=== PATIENT | female | born 1940 | race African-American/Black ===

== ENCOUNTER → 2016-12-22 | Outpatient (CLI) | payer OTHER ==
[~2016-12-22] MED LIST: CHOL100013 PO; DOCU-27 PO; FERR325T72 PO; GABA-586 PO; LEVO125T5 PO; LEVO175T5 PO; LISI-334 PO; METO25TA4 PO; OMEP20CA9 PO; OXYC-323 PO; Oxycodone Hcl/Acetaminophen PO; SIMV20TA3 PO; TRAM50TA PO; WARF5TAB7 PO; WARF6TAB49 PO
--- NOTE | 2016-12-22 10:42 | RAD ---
Right lower extremity nonvascular ultrasound History: Right groin pain after cardiac catheterization. Comparison: None. Technique: Grayscale and color Doppler imaging was performed of the right inguinal region. Findings: No focal fluid collection is seen in the right inguinal region. No pseudoaneurysm is seen. Right common femoral artery and common femoral vein are seen which appear patent. Impression: No evidence of hematoma in the right inguinal region. No evidence of pseudoaneurysm.
== END | disposition home or self-care (01) ==
LOC: US 06:54 → MERGE 06:54 → EDBD 06:54
PROVIDERS: ATTEND Internal Medicine
DX: R10.31 Right lower quadrant pain (principal)
CPT/HCPCS: 76881

== ENCOUNTER → 2017-03-01 | Outpatient (CLI) | payer OTHER ==
[2015-09-04 22:00] VITALS: BP 155/104
[~2017-03-01] MED LIST changes: +DOCU-109 PO; -DOCU-27 PO
--- NOTE | 2017-03-01 15:22 | RAD ---
EXAM: MRI LUMBAR SPINE WITHOUT CONTRAST. HISTORY: Low back pain with worsening right lower extremity radiculopathy. TECHNIQUE: Magnetic resonance images of the lumbar spine were obtained without contrast. COMPARISON: None. FINDINGS: There are limitations from motion artifact on some series. The examination remains diagnostic for the following. There is grade 2 anterolisthesis at L4-5 secondary to bilateral L4 pars interarticularis defects. There is a moderate superior endplate central compression deformity/Schmorl's node at L4 with residual marrow edema consistent with a subacute process. A small inferior endplate fractures seen posteriorly at L3 without significant height loss. Marrow edema at L2-3 is discogenic. Degenerative disc disease is moderate to severe at L4-5, mild at L3-4 and moderate elsewhere. The conus is at L1 and appears normal. At T10-11, there is a moderate posterior disc bulge versus broad protrusion. It abuts the anterior cord without clear deformity. Central canal stenosis appears mild. A posterior bulge and facet and ligamentum flavum hypertrophy or appear to result in mild central canal stenosis at T11-12. At T12-L1, there is a small posterior disc bulge. Facet and ligamentum flavum hypertrophy is mild. Neural foraminal stenosis is mild bilaterally. At L1-2, there is a moderate posterior disc bulge. Facet and ligamentum flavum hypertrophy is moderate. Epidural lipomatosis is the main contributor to moderate compression of the thecal sac. There is no clear neural foraminal stenosis. At L2-3, there is a moderate posterior disc bulge. Facet and ligamentum flavum hypertrophy are moderate to severe. Central canal stenosis is moderate to severe. Epidural lipomatosis contributes to further severe compression of the thecal sac. Neural foraminal stenosis is mild on the left and moderate on the right. At L3-4, there is a small posterior disc bulge. Facet hypertrophy is severe. Central canal stenosis is severe. Neural foraminal stenosis is mild to moderate bilaterally. At L4-5, there is a moderate posterior disc-osteophyte complex. Facet and ligamentum flavum hypertrophy is severe. Central canal stenosis is severe. Neural foraminal stenosis is moderate to severe bilaterally. Lateral components to the disc osteophyte complex also exert mass effect on both L4 nerve roots lateral to the foramina. At L5-S1, there is a moderate posterior disc-osteophyte complex with a central protrusion and annular tear. Facet and ligamentum flavum hypertrophy is moderate. Central canal stenosis is moderate. Neural foraminal stenosis is moderate on the left and mild on the right. Lateral disc osteophyte complexes exert mass effect on the L5 nerve roots lateral to the foramina. IMPRESSION: 1. Central canal stenosis is severe at L3-L5 and moderate from T12 through L2 and at L5-S1. Epidural lipomatosis contributes to further compression of the thecal sac at levels where central canal stenosis is not already severe. 2. Grade 2 anterolisthesis at L4-5 from bilateral L4 pars interarticularis defects. There is moderate to severe bilateral neural foraminal stenosis at this level. Additional neural foraminal stenosis is mild to moderate as above. 3. There is additional mass effect on both L4 and L5 nerve roots lateral to the foramina from disc osteophyte complexes. 4. Moderate subacute central superior plate compression deformity at L4. There is a minimal subacute compression deformity at the inferior endplate of L3. 5. Fatty atrophy of the paraspinous musculature. Electronically signed by: Thomas Cristobal MD (03/01/2017 3:19 PM) [facility]
== END | disposition home or self-care (01) ==
LOC: MRI 14:18
PROVIDERS: ATTEND Internal Medicine
DX: M48.06 Spinal stenosis, lumbar region (principal); M48.05 Spinal stenosis, thoracolumbar region; M51.17 Intervertebral disc disorders with radiculopathy, lumbosacral region; M51.16 Intervertebral disc disorders with radiculopathy, lumbar region; M24.28 Disorder of ligament, vertebrae; M25.78 Osteophyte, vertebrae; M48.8X9 Other specified spondylopathies, site unspecified
CPT/HCPCS: 72148

== ENCOUNTER → 2018-06-29 | Outpatient (CLI) | payer OTHER ==
[2018-05-24 17:15] VITALS: BP 140/71
[~2018-06-29] MED LIST changes: +ASPI81TA50 PO; +CHOL500L2 PO; +DICL100G18 TP; +FERR-36 PO; +LEVO150T5 PO; +MONT10TA9 PO; +MULT1TAB52 PO; +WARF-31 PO; -WARF5TAB7 PO
--- NOTE | 2018-06-29 12:35 | RAD ---
MR#: [id number] Date of Study: 06/29/2018 Ordering Physician: MERCEDES CARDENAS, Referring Physician: MERCEDES CARDENAS, Tech: Susie Vital RDMS, RVT, RTR APPROVED REPORT Patient Location : OUT-PATIENT Indications Lower Extremity Pain : Bilateral Greater Saphenous Veins (GSV) Significant venous relux noted in the RIGHT GSV at the following levels : Superficial Femoral Junctio n, Proximal Thigh, Mid Thigh, Distal Thigh, Proximal Calf, Mid Calf, Distal Calf Significant venous relux noted in the LEFT GSV at the following levels : Superficial Femoral Junction , Proximal Thigh, Mid Thigh, Distal Thigh, Proximal Calf, Mid Calf, Distal Calf Findings Grayscale images of the bilateral greater and lesser saphenous veins do not reveal any obvious eviden ce of thrombus. Color Doppler and spectral imaging reveals positive reflux in the bilateral greater saphenous veins. The right great saphenous vein measures 5.6 mm and has a maximum reflux time of approximately 2.1 sec onds. The left great saphenous vein measures 5.4 mm and has a reflux time of 2.1 seconds. Bilateral lesser saphenous veins do not show any evidence of reflux. Critical Notification Critical Value: No <Conclusion> Positive for reflux in the bilateral greater saphenous veins. Signed by : Mercedes Cardenas, Electronically Approved : 06/29/2018 12:34:11
--- NOTE | 2018-07-02 11:40 | RAD ---
MR#: [id number] Date of Study: 06/29/2018 Ordering Physician: MERCEDES CARDENAS, Referring Physician: MERCEDES CARDENAS, Tech: Susie Vital, RDMS, RVT, RTR APPROVED REPORT Patient Location: OUT-PATIENT Indications Bilateral Leg Pain VELOCITY AND DOPPLER WAVEFORM ANALYSIS RIGHT cm/secWaveformSeverity LEFT cm/secWaveform Severity pCFA 120.3TriphasicMild < 50%pCFA 100.0BiphasicMild < 50% Prof Fem Art. 61.9BiphasicMild < 50%Prof Fem Art. 77.4BiphasicMild < 50% Fem Art Prox. 88.6BiphasicMild < 50%Fem Art Prox. 130.2BiphasicMild < 50% Fem Art Mid. 89.3BiphasicMild < 50%Fem Art Mid. 77.0BiphasicMild < 50% Fem Art Dist. 80.2BiphasicMild < 50%Fem Art Dist. 52.9BiphasicMild < 50% Pop Art(AK) 52.9BiphasicMild < 50%Pop Art(AK) 58.6BiphasicMild < 50% SHEET ROCK TAPER Dist. 77.7BiphasicMild < 50%SHEET ROCK TAPER Dist. 97.2BiphasicMild < 50% Per Art Prox. 52.9BiphasicMild < 50%Per Art Prox. 56.1BiphasicMild < 50% RUI Prox. 38.4BiphasicMild < 50%RUI Prox. 35.3BiphasicMild < 50% DPA 57.8BiphasicMild < 50%DPA 71.2BiphasicMild < 50% Findings Springer scale images are noted for mild diffuse atherosclerosis. Mostly biphasic waveforms above the kne e and mostly monophasic, mildly blunted waveforms below the knee. No focal high grade disease is note d. Critical Notification Critical Value: No <Conclusion> No focal high grade disease in the bilateral lower extremities with three vessel run-off Signed by : Mercedes Cardenas, Electronically Approved : 07/02/2018 11:39:46
== END | disposition home or self-care (01) ==
LOC: EDBD → MERGE 09:00 → EDBD 09:00 → US 10:00
PROVIDERS: ATTEND Internal Medicine Cardiovascular Disease
DX: I70.293 Other atherosclerosis of native arteries of extremities, bilateral legs (principal)
CPT/HCPCS: 93925; 93970

== ENCOUNTER → 2020-03-05 | Outpatient (CLI) | payer MEDICARE, OTHER ==
[2015-09-04 22:00] VITALS: BP 155/104
[~2020-03-05] MED LIST changes: -DICL100G18 TP; +DICL100G54 TP; -GABA-586 PO; +GABA300C18 PO; +MONT10TA49 PO; -MONT10TA9 PO; +MULT-445 PO; -MULT1TAB52 PO; +OMEP20CA16 PO; -OMEP20CA9 PO; -OXYC-323 PO; +OXYC1TAB15 PO; +SIMV20TA18 PO; -SIMV20TA3 PO
[2020-03-05 15:14] LABS: CHOLESTEROL/HDL RATIO 1.7
--- NOTE | 2020-03-05 15:23 | CARD ---
MR#: [id number] Date of Study: 03/05/2020 Ordering Physician: MERCEDES CARDENAS, Referring Physician: MERCEDES CARDENAS, Tech: Ramandeep Hampton [facility] APPROVED REPORT EXAM: Two-dimensional and M-mode echocardiogram with Doppler and color Doppler. Other Information Quality : Fair INDICATION Cardiac Disease: CAD 2D DIMENSIONS RVDd3.2 (2.9-3.5cm)Left Atrium(2D)3.0 (1.6-4.0cm) IVSd1.2 (0.7-1.1cm)Aortic Root(2D)2.7 (2.0-3.7cm) LVDd3.2 (3.9-5.9cm)LVOT Diameter2.0 (1.8-2.4cm) PWd1.5 (0.7-1.1cm)LVDs2.9 (2.5-4.0cm) FS (%) 24.0 %SV8.3 ml LVEF(%)55.0 (>50%) Aortic Valve AoV Peak Wesley.193.5cm/sAoV VTI35.7cm AO Peak GR.15.0mmHgLVOT Peak Wesley.67.5cm/s AO Mean GR.9mmHgAVA (VMAX)1.04cm2 DEYSI (VTI)1.20cm2 Mitral Valve MV E Omzexjxj64.5cm/sMV DECEL [id number] MV A Yutzaifm07.0cm/sE/A Ratio0.6 Pulmonary Vein S1 Vckjybwc27.2cm/sD2 Sgvghpnn64.3cm/s LEFT VENTRICLE The left ventricle is normal size. There is mild concentric left ventricular hypertrophy. The left ve ntricular systolic function is normal and the ejection fraction is within normal range. The Ejection Fraction is 55-60%. There is normal LV segmental wall motion. Transmitral Doppler flow pattern is Gra de I-abnormal relaxation pattern. RIGHT VENTRICLE The right ventricle is normal size. The right ventricular systolic function is normal. ATRIA The left atrium size is normal. The right atrium size is normal. The interatrial septum is intact wit h no evidence for an atrial septal defect or patent foramen ovale as noted on 2-D or Doppler imaging. AORTIC VALVE The aortic valve is calcified and displays decreased opening. Doppler and Color Flow revealed no sign ificant aortic regurgitation. Calculated aortic valve area is 1.2 cm2 with maximum pressure gradient of 15 mmHg and mean pressure gradient of 9 mmHg. Doppler and color-flow analysis revealed mild aortic stenosis. MITRAL VALVE The mitral valve is calcified but opens well. There is no evidence of mitral valve prolapse. There is no mitral valve stenosis. Doppler and Color Flow revealed no mitral valve regurgitation noted. TRICUSPID VALVE The tricuspid valve is normal in structure and function. Doppler and Color Flow revealed no tricuspid valve regurgitation noted. There is no tricuspid valve stenosis. PULMONIC VALVE The pulmonic valve is not well visualized. Doppler and Color Flow revealed no pulmonic valvular regur gitation. There is no pulmonic valvular stenosis. GREAT VESSELS The aortic root is normal in size. The ascending aorta is not well seen. The IVC is normal in size an d collapses >50% with inspiration. PERICARDIAL EFFUSION There is no evidence of significant pericardial effusion. Critical Notification Critical Value: No <Conclusion> The left ventricular systolic function is normal and the ejection fraction is within normal range. Th e Ejection Fraction is 55-60%. There is normal LV segmental wall motion. Signed by : Mercedes Cardenas, Electronically Approved : 03/05/2020 15:23:18
== END | disposition home or self-care (01) ==
LOC: EDBD 01-28 13:00 → ECHO 14:00
PROVIDERS: ATTEND Internal Medicine Cardiovascular Disease
DX: I08.0 Rheumatic disorders of both mitral and aortic valves (principal); I25.10 Atherosclerotic heart disease of native coronary artery without angina pectoris
CPT/HCPCS: 36415; 80061; 83721; 93306

== ENCOUNTER → 2020-12-11 | Outpatient (CLI) | payer BC, MEDICARE ==
[2015-09-04 22:00] VITALS: BP 155/104
[~2020-12-11] MED LIST changes: -LISI-334 PO; +LISI20TA18 PO
--- NOTE | 2020-12-11 13:31 | RAD ---
MR#: [id number] Date of Study: 12/11/2020 Ordering Physician: MERCEDES CARDENAS, Referring Physician: MERCEDES CARDENAS, Tech: Susie Vital RDMS, RVT, RTR APPROVED REPORT Patient Location: OUT-PATIENT Laterality:Bilateral Indications CVA/TIA: Doppler Spectral Velocity Analysis Right Left pCCA 85/11 cm/spCCA 72/16 cm/s mCCA 43/7 cm/smCCA 63/18 cm/s dCCA 52/14 cm/sdCCA 40/9 cm/s Bulb 70/17 cm/sBulb 52/10 cm/s ECA 62/6 cm/sECA 82/9 cm/s pICA 65/18 cm/spICA 259/35 cm/s Earline 66/16 cm/smICA 148/38 cm/s dICA 55/11 cm/sdICA 109/44 cm/s Vert. 43/11 cm/sVert. 32/4 cm/s ICA/CCA 1.53ICA/CCA 4.11 Findings Grayscale images of the bilateral carotid vessels demonstrates mild to moderate diffuse atheroscleros is. On the right side spectral waveforms and velocities are overall consistent with 0 to less than 50% st enosis. Normal ICA to CCA ratio is noted. Normal antegrade vertebral velocities noted. On the left side there is significant atherosclerotic plaque noted at the level of the proximal inter nal carotid artery with elevated velocities overall consistent with greater than 70% stenosis. [place] ICA to CCA ratios are noted in the proximal internal carotid artery. Critical Notification Critical Value: No <Conclusion> 1. No significant right-sided carotid arterial disease 2. Greater than 70% left-sided carotid disease. Signed by : Mercedes Cardenas, Electronically Approved : 12/11/2020 13:31:13
--- NOTE | 2020-12-11 14:02 | CARD ---
MR#: [id number] Date of Study: 12/11/2020 Ordering Physician: MERCEDES CARDENAS, Referring Physician: MERCEDES CARDENAS, Tech: Marce Shah [facility] APPROVED REPORT EXAM: Two-dimensional and M-mode echocardiogram with Doppler and color Doppler. Other Information Quality : Technically LimitedHR: 52bpm Rhythm : NSR INDICATION Hypertension/HCVD RISK FACTORS Hypertension Hyperlipidemia 2D DIMENSIONS RVDd3.3 (2.9-3.5cm)Left Atrium(2D)3.3 (1.6-4.0cm) IVSd1.3 (0.7-1.1cm)Aortic Root(2D)3.2 (2.0-3.7cm) LVDd3.9 (3.9-5.9cm)LVOT Diameter2.5 (1.8-2.4cm) PWd1.3 (0.7-1.1cm)LVDs3.0 (2.5-4.0cm) FS (%) 23.5 %SV31.3 ml Aortic Valve AoV Peak Wesley.193.4cm/sAoV VTI49.8cm AO Peak GR.15.0mmHgLVOT Peak Wesley.72.7cm/s AO Mean GR.8mmHgAVA (VMAX)1.78cm2 Mitral Valve MV E Jlgvaojd43.3cm/sMV DECEL [id number] MV A Ipsgbtjw433.4cm/sE/A Ratio0.8 Tricuspid Valve TR P. Uewlmdsn934gb/sTR Peak Gr.8mmHg Pulmonary Vein S1 Velocity6.0cm/s LEFT VENTRICLE The left ventricle is normal size. There is mild concentric left ventricular hypertrophy. The left ve ntricular systolic function is normal. Estimated ejection fraction 60-65%. There is normal LV segment al wall motion. Transmitral Doppler flow pattern is Grade I-abnormal relaxation pattern. RIGHT VENTRICLE The right ventricle is normal size. There is normal right ventricular wall thickness. The right ventr icular systolic function is normal. ATRIA The left atrium size is normal. The right atrium size is normal. The interatrial septum is intact wit h no evidence for an atrial septal defect or patent foramen ovale as noted on 2-D or Doppler imaging. AORTIC VALVE The aortic valve is normal in structure and function. Doppler and Color Flow revealed mild aortic reg urgitation. There is no significant aortic valvular stenosis. MITRAL VALVE The mitral valve is normal in structure and function. There is no evidence of mitral valve prolapse. There is no mitral valve stenosis. Doppler and Color-flow revealed mild mitral regurgitation. TRICUSPID VALVE The tricuspid valve is normal in structure and function. Doppler and Color Flow revealed trace tricus pid regurgitation. Estimated PAP 20 mmHg. There is no tricuspid valve stenosis. PULMONIC VALVE The pulmonary valve is normal in structure and function. Doppler and Color Flow revealed trace to mil d pulmonic valvular regurgitation. GREAT VESSELS The aortic root is normal in size. The ascending aorta is normal in size. The IVC is normal in size a nd collapses >50% with inspiration. PERICARDIAL EFFUSION There is no evidence of significant pericardial effusion. Critical Notification Critical Value: No <Conclusion> The left ventricular systolic function is normal. Estimated ejection fraction 60-65%. There is normal LV segmental wall motion. Transmitral Doppler flow pattern is Grade I-abnormal relaxation pattern. Mild aortic regurgitation. Mild mitral regurgitation. Trace tricuspid regurgitation. Estimated PAP 20 mmHg. There is no evidence of significant pericardial effusion. Signed by : London Phillips, Electronically Approved : 12/11/2020 14:02:15
== END ==
LOC: ECHO 09:45 → EDBD 10:00
PROVIDERS: ATTEND Internal Medicine Cardiovascular Disease
DX: I65.23 Occlusion and stenosis of bilateral carotid arteries (principal); I08.8 Other rheumatic multiple valve diseases; I63.9 Cerebral infarction, unspecified
CPT/HCPCS: 93306; 93880

== ENCOUNTER → 2020-12-30 | Outpatient (CLI) | payer BC ==
[2015-09-04 22:00] VITALS: BP 155/104
[~2020-12-30] MED LIST changes: +REGADENOSON 0.4 MG/5 ML DISP.SYRIN. IV ONE
--- NOTE | 2020-12-30 15:26 | RAD ---
MR#: [id number] Date of Study: 12/30/2020 Ordering Physician: MERCEDES CARDENAS, Referring Physician: DALTON FELTON Tech: Shannon Moe RT (R) (N) APPROVED REPORT Test Type: Pharmacological Stress Nurse/Tech: Yaritza Kwok RN Test Indications: Dyspnea Cardiac History: See EMR. Medications: ASA 81mg QD, See EMR. Medical History: See EMR. Resting ECG: SB w/ 1 degree HB Resting Heart Rate: 55 bpm Resting Blood Pressure: 154/62mmHg Pretest Chest Pain: No chest pain Nurse/Tech Notes Lungs CTA, Heart tones regular. Consent: The procedure was explained to the patient in lay terms. Informed consent was witnessed. Enrique eout was entered into Digital Message Display. History and Stress Test performed by IDANIA Ramires, STEW (R) (N) Pharm. Details Pharmacologic stress testing was performed using 0.4mg per 5ml of regadenoson given intravenously ove r 7-10 seconds. Stress Symptoms Dyspnea POST EXERCISE Reason for Termination: Infusion complete Max HR: 75 bpm Max Blood Pressure: 141/62mmHg Blood Pressure response to exercise: Normal blood pressure response during stress. Heart Rate response to exercise: WNL Chest Pain: No. Arrhythmia: No. INTERPRETATION Stress EKG Conclusion: The resting EKG shows a mild sinus bradycardia with mild nonspecific ST segmen t changes. The stress EKG shows no significant changes from baseline. No EKG evidence of stress-induced ischemia. Imaging Protocol IMAGE PROTOCOL: Rest Tc-99m/stress Tc-99m 1 day Rest: Stress: Viability: Radiopharm.Tc99m BbjpdrcbdMu83w Sestamibi Dose10.5mCi 31mCi Duration 13min. 13min. Img Date 12/30/2020 12/30/2020 Inj-Img [id number]. 60min. Rest Admin Site:IV - Right AntecubitalAdministrator:IDANIA Ramires, STEW (R)(N) Stress Admin Site: IV - Right AntecubitalAdministrator: IDANIA Ramires, ARRT (R)(N) STRESS DATA End Diast. Vol.93.0mlLVEDV index BSA48.0ml End Syst. Vol.25.0mlLVESV index BSA13.0ml Myocardial Etgo948.0gEject. Vmuiraas43.0% Stress Scores Regional WT1.00Summed WT5.00 Regional WM0.00Summed WM1.00 LV Perfusion The stress scans show mild anterior wall thinning. The rest scans show no significant defects. Nuclear imaging is suggestive of possible mild anterior wall reversible ischemia. Wall Motion Left ventricular systolic function is normal with no regional wall motion abnormalities and an ejecti on fraction of greater than 70%. LV Perfusion 1 Comparison to Prior LV Perfusion Images: No change LV Perf. Quant 17 Seg. SSS11.00 17 Seg. SRS0.00 17 Seg. SDS11.00 Stress Defect Extent (% LAD)8.10Rest Defect Extent (% LAD)0.00Rev. Defect Extent (% LAD)8.10 Stress Defect Extent (% LCX) 52.50Rest Defect Extent (% LCX)0.00Rev. Defect Extent (% LCX)50.00 Stress Defect Extent (% RCA)0.00Rest Defect Extent (% RCA)0.00Rev. Defect Extent (% RCA)0.00 Stress Defect Extent (% DON)16.30Rest Defect Extent (% DON)0.00Rev. Defect Extent (% DON)15.90 IMPRESSION Comparison of Rest to Stress Regional Wall Thickening: No Change, Normal, Mildly Decreased Wall Thic kening, Moderately Decreased Wall Thickening, Severely Decreased Wall Thickening, Hyperdynamic Wall T hickening Conclusion 1. No EKG evidence of stress-induced ischemia. 2. Nuclear imaging is suggestive of mild anterior wall reversible ischemia. 3. Left ventricular systolic function is normal with an ejection fraction of greater than 70%. 4. Moderate risk Lexiscan nuclear stress test. Signed by : Elia Costa MD Electronically Approved : 12/30/2020 15:25:41
== END ==
LOC: NM 09:22
PROVIDERS: ATTEND Internal Medicine Cardiovascular Disease
DX: R06.00 Dyspnea, unspecified (principal)
CPT/HCPCS: 78452; 93017; A9500; J2785

== ENCOUNTER → 2020-12-31 | Outpatient (CLI) | payer BC ==
[2015-09-04 22:00] VITALS: BP 155/104
[~2020-12-31] MED LIST changes: -REGADENOSON 0.4 MG/5 ML DISP.SYRIN. IV ONE
--- NOTE | 2021-01-04 11:54 | RESP ---
DATE OF SERVICE: 12/31/2020 PULMONARY FUNCTION TESTS ATTENDING PHYSICIAN: Dr. Cardenas. The patient's FVC was 2.28, which is 119% predicted. The FEV1 was 1.92, which is 130% predicted. The FEV1/FVC ratio was normal. FEF 25-75 was normal. No bronchodilators were given. Lung volumes showed increased total lung capacity and increased residual volume. Diffusion capacity was normal. IMPRESSION: 1. No significant obstructive airway disease. 2. No bronchodilator was given. 3. Lung volumes consistent with air trapping and hyperinflation. 4. Normal diffusion capacity. TANISHA/GIUSEPPE DR: Dl TID: [id number] CC: MERCEDES CARDENAS MD
== END ==
LOC: PF 10:10
PROVIDERS: ATTEND Internal Medicine Cardiovascular Disease
DX: J98.11 Atelectasis (principal)
CPT/HCPCS: 94010; 94726; 94729